=== PATIENT | female | born 1965 | race African-American/Black ===

== ENCOUNTER 2017-06-15 22:27 | Emergency (ER) | payer SELFPAY ==
[~2017-06-15 22:27] MED LIST: ISOVUE-370 76%-LOCM 1 ML ONE
[2017-06-15] MEDS ORDERED: Lorazepam 2 MG/ML VIAL ONE (23:42)
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
== END 2017-06-16 00:26 | disposition home or self-care (01) ==
LOC: ERS 22:27
DX: S70.02XA Contusion of left hip, initial encounter (principal); S20.219A Contusion of unspecified front wall of thorax, initial encounter; S40.012A Contusion of left shoulder, initial encounter; S70.12XA Contusion of left thigh, initial encounter; S00.83XA Contusion of other part of head, initial encounter; I10 Essential (primary) hypertension; J45.909 Unspecified asthma, uncomplicated; D64.9 Anemia, unspecified; W17.89XA Other fall from one level to another, initial encounter
CPT/HCPCS: 70486; 71260; 72170; 96374; J2060

== ENCOUNTER 2017-07-20 23:13 | Emergency (ER) | payer SELFPAY ==
[2017-07-21] MEDS ORDERED: Ketorolac Tromethamine 30 MG/ML VIAL ONE (02:21)
--- NOTE | 2017-07-21 10:02 | RAD ---
LEFT HIP: Two views. HISTORY: Fell 3 weeks ago with persistent left hip pain. FINDINGS: No evidence of fracture identified. Femoral head is normally maintained and normally positioned. IMPRESSION: No evidence of fracture or acute abnormality. POS: [facility]
== END 2017-07-21 02:40 | disposition home or self-care (01) ==
LOC: ERS 23:13
DX: M54.42 Lumbago with sciatica, left side (principal); J45.909 Unspecified asthma, uncomplicated; D64.9 Anemia, unspecified; Z79.899 Other long term (current) drug therapy; I10 Essential (primary) hypertension
CPT/HCPCS: 96372; J1885

== ENCOUNTER 2017-09-14 11:35 | Emergency (ER) | payer SELFPAY | END 2017-09-14 13:30 | disposition left against medical advice (07) | LOC: ERS 11:35 | DX: Z53.21 Procedure and treatment not carried out due to patient leaving prior to being seen by health care provider (principal) ==

== ENCOUNTER 2017-09-26 04:47 | Emergency (ER) | payer SELFPAY ==
[2017-09-26] MEDS ORDERED: Ketorolac Tromethamine 60 MG/2 ML VIAL ONE (05:02)
== END 2017-09-26 05:37 | disposition home or self-care (01) ==
LOC: ERS 04:47
DX: G89.29 Other chronic pain (principal); M54.5 Low back pain; I10 Essential (primary) hypertension; J45.909 Unspecified asthma, uncomplicated; D64.9 Anemia, unspecified; F41.9 Anxiety disorder, unspecified; Z79.899 Other long term (current) drug therapy
CPT/HCPCS: 96372; J1885

== ENCOUNTER 2017-12-04 17:43 | Emergency (ER) | payer SELFPAY ==
[2017-12-04] MEDS ORDERED: Albuterol Sulfate 2.5 mg/0.5 ml Neb ONE ×2 (18:00→18:03)
[2017-12-04] MEDS ORDERED: Albuterol Sulfate 1.25 MG/3 ML NEB ONE (18:03)
[2017-12-04] MEDS ORDERED: Albuterol Sulfate 2.5 mg/3 ml Neb ONE (19:40)
[2017-12-04] MEDS ORDERED: Magnesium Sulfate 2 GM/100 ML BAG ONE (20:09)
[2017-12-04] MEDS ORDERED: Ketorolac Tromethamine 30 MG/ML VIAL ONE (20:09)
[2017-12-04] MEDS ORDERED: predniSONE 20 MG TAB ONE (20:54)
[2017-12-04] MEDS ORDERED: Lorazepam 2 MG/ML VIAL ONE (21:05)
== END 2017-12-04 22:50 | disposition home or self-care (01) ==
LOC: ERS 17:43
DX: J45.901 Unspecified asthma with (acute) exacerbation (principal); I10 Essential (primary) hypertension; D64.9 Anemia, unspecified; F41.9 Anxiety disorder, unspecified
CPT/HCPCS: 94644; 96365; 96375; J1885; J2060; J3475; J7506; J7611; J7620

== ENCOUNTER 2018-03-07 17:43 | Emergency (ER) | payer SELFPAY | END 2018-03-07 18:26 | disposition home or self-care (01) | LOC: ERS 17:43 | DX: M54.42 Lumbago with sciatica, left side (principal); J45.909 Unspecified asthma, uncomplicated; D64.9 Anemia, unspecified; F41.9 Anxiety disorder, unspecified | CPT/HCPCS: 96372 ==

== ENCOUNTER 2018-03-14 16:48 | Emergency (ER) | payer SELFPAY ==
[2018-03-14] MEDS ORDERED: Lorazepam 2 MG/ML VIAL ONE (17:15)
[2018-03-14] MEDS ORDERED: Dexamethasone 4 mg/ml Vial ONE (17:16)
[2018-03-14 17:37] LABS: #Eosinphils 0.2 thou/uL (0.0-0.7); #Lymphocytes 2.8 thou/uL (1.20-3.40); #Monocytes 0.4 thou/uL (0.11-0.59); #Neutrophils 2.4 thou/uL (1.40-6.50); %Basophils 0.2 % (0.0-1.0); %Eosinophils 4.2 % (0.0-10.0); %Lymphocytes 47.9 % (21.0-51.0); %Monocytes 6.5 % (0.0-10.0); %Neutrophils 41.2 % (42.0-75.0); Hemoglobin 12.4 g/dL (12.0-16.0); Mean Corpuscular HGB CONC 33.3 g/dL (32.0-36.0); Mean Corpuscular Hemoglobin 31.6 pg (27.0-31.0); Mean Corpuscular Volume 94.6 fL (78.0-98.0); Mean Platelet Volume 7.9 fL (7.4-10.4); Platelet Count 268 thou/uL (130-400); RBC Distribution Width 12.7 % (11.5-14.5); Red Blood Cell (RBC) Count 3.92 mill/uL (4.20-5.40); White Blood Cell (WBC) Count 5.8 thou/uL (4.8-10.8)
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
[2018-03-14 17:58] LABS: ALT (SGPT) 8 U/L (8-55); AST (SGOT) 12 U/L (5-34); Albumin 3.9 g/dL (3.5-5.0); Alkaline Phosphatase 93 U/L (40-150); Anion Gap 14 mmol/L (10-20); BUN (Urea Nitrogen) 8 mg/dL (9.8-20.1); Bilirubin, Total 0.5 mg/dL (0.2-1.2); CK (CPK) 107 U/L (29-168); Calc. Creatinine Clearance 0 mL/min (70-130); Calcium 8.9 mg/dL (7.8-10.44); Carbon Dioxide 21 mmol/L (22-29); Chloride 108 mmol/L (98-107); Estimated GFR-MDRD 76; Globulin 3.5 g/dL (2.4-3.5); Glucose 84 mg/dL (70-105); Potassium 3.4 mmol/L (3.5-5.1); Protein, Total 7.4 g/dL (6.0-8.3); Sodium 140 mmol/L (136-145)
[2018-03-14 18:06] LABS: CKMB 0.6 ng/mL (0-6.6); Troponin I Less than 0.010 ng/mL (< 0.028)
== END 2018-03-14 18:47 | disposition home or self-care (01) ==
LOC: ERS 16:48
DX: J45.901 Unspecified asthma with (acute) exacerbation (principal); F41.0 Panic disorder [episodic paroxysmal anxiety]
CPT/HCPCS: 36415; 71045; 80053; 82553; 84484; 85025; 93005; 96374; 96375; J1100; J2060